=== PATIENT | female | born 1930 ===

== ENCOUNTER → 2018-06-11 | Outpatient (CLI) | payer MEDICARE ==
[2018-06-11 10:00] LABS: International Normalized Ratio 2.22; Prothrombin Time Results 21.9 Sec (9.7-11.5)
== END | disposition home or self-care (01) ==
LOC: LAB SHORT 09:15 → LAB EV 09:15
PROVIDERS: Physician Assistant Medical
DX: Z79.01 Long term (current) use of anticoagulants (principal); Z51.81 Encounter for therapeutic drug level monitoring
CPT/HCPCS: 85610

== ENCOUNTER 2020-01-15 20:01 | Inpatient (IN) | payer MEDICARE ==
[~2020-01-15] VITALS: Ht 172.7 cm; Wt 58.4 kg
[2020-01-15 21:13] LABS: Bun/Creatinine Ratio 19.6 (12.0-20.0); Calcium, Blood 9.3 mg/dL (8.5-10.1); Creatinine, Blood 1.48 mg/dL (0.40-1.00); Free Thyroxine 1.11 ng/dL (0.70-1.60); Magnesium, Blood 1.8 mg/dL (1.6-2.4); Potassium, Blood 5.8 mmol/L (3.5-5.5)
[2020-01-15] MEDS ORDERED: LOSARTAN POTAS100 M1 PO (21:34)
[2020-01-15] MEDS ORDERED: LEVSOD75 PO (21:34)
[2020-01-15] MEDS ORDERED: SPIR25 PO (21:35)
[2020-01-15] MEDS ORDERED: ATEN50 PO (21:35)
[2020-01-15] MEDS ORDERED: DYAZIDE 37.5-21 EACH PO (21:35)
[2020-01-15] MEDS ORDERED: ROPINIROLE HCL4 M1 PO (21:35)
[2020-01-15] MEDS ORDERED: TRAM50 PO (21:38)
[2020-01-15] MEDS ORDERED: Coumadin2 MG PO (21:38)
[2020-01-15] MEDS ORDERED: ACET500 PO (21:39)
[2020-01-15 23:46] LABS: International Normalized Ratio 1.83; Prothrombin Time Results 18.9 Sec (9.7-11.5)
[2020-01-16 05:07] LABS: BASOPHILS ABSOLUTE AUTO 0.03 K/mm3 (0.00-0.23); BASOPHILS PERCENT AUTO 1 % (0-2); EOSINOPHILS ABSOLUTE AUTO 0.07 K/mm3 (0.00-0.68); EOSINOPHILS PERCENT AUTO 1 % (0-6); Hematocrit 33.5 % (33.0-51.0); Hemoglobin 10.8 g/dL (11.5-16.0); IMMATURE GRAN ABSOLUTE AUTO 0.01 K/mm3 (0.00-0.10); IMMATURE GRAN PERCENT AUTO 0 % (0-1); LYMPHOCYTES ABSOLUTE AUTO 1.02 K/mm3 (0.84-5.20); LYMPHOCYTES PERCENT AUTO 21 % (21-46); MONOCYTES ABSOLUTE AUTO 0.73 K/mm3 (0.16-1.47); MONOCYTES PERCENT AUTO 15 % (4-13); Mean Corpuscular HGB 30.4 pg (26.0-34.0); Mean Corpuscular HGB Conc 32.2 g/dL (31.5-36.5); Mean Corpuscular Volume 94 fL (80-100); Mean Platelet Volume 9.6 fL (9.1-12.4); NEUTROPHILS ABSOLUTE AUTO 3.05 K/mm3 (1.96-9.15); NEUTROPHILS PERCENT AUTO 62 % (41-73); Platelet Count 126 K/mm3 (150-400); RDW Coefficient Variation 13.9 % (11.7-14.2); RDW Standard Deviation 48.7 fL (35.1-46.3); Red Blood Cell Count 3.55 M/mm3 (3.80-5.20); White Blood Cell Count 4.91 K/mm3 (4.00-11.30)
[2020-01-16 05:36] LABS: Albumin, Blood 2.9 g/dL (3.4-5.0); Anion Gap 5 mmol/L (6-16); Blood Urea Nitrogen 27 mg/dL (8-24); Bun/Creatinine Ratio 18.8 (12.0-20.0); CO2, Blood 19 mmol/L (21-32); Calcium, Blood 8.8 mg/dL (8.5-10.1); Chloride, Blood 108 mmol/L (98-108); Creatinine, Blood 1.44 mg/dL (0.40-1.00); Glomerular Filtration Rate 37 (60-); Glucose, Blood 86 mg/dL (70-99); Phosphorus, Blood 2.9 mg/dL (2.5-4.9); Sodium, Blood 132 mmol/L (136-145)
[2020-01-16 05:38] LABS: Potassium, Blood 6.1 mmol/L (3.5-5.5)
--- NOTE | 2020-01-16 06:41 | NUR ---
SHIFT SUMMARY PT WAS A NEW ADMIT DURING THE NIGHT, ARRIVING ON THE FLOOR AT 2358. PT WAS ADMITTED FOR EDMOND AND HYPERKALEMIA. PT IS A&O X 3, THOUGH FORGETFUL, SBA TO THE BS. PT DENIED ANY C/O ACUTE PAIN, NAUSEA OR SOB, BUT DID C/O RESTLESS LEGS. HOSPITALIST DR CAUSEY WAS NOTIFIED AT 0020, AND PT'S HOME DOSE OF DOSE OF ROPIR[place]LE ORDERED AND ADMINISTERED. PT IS RECEIVING NS @ 75 ML/HR. THIS AM, K+ WAS NOTED CRITICALLY HIGH AT 6.1. THE HOSPITALIST DR CAUSEY WAS NOTIFIED, AND A OT DOSE OF KAYEXALATE ORDERED AND ADMINISTERED. NO OTHER ACUTE CHANGES IN PT CONDITION NOTED. WILL CONTINUE TO MONITOR AND TREAT PER EMAR UNTIL HAND OFF TO DAY SHIFT RN.
[2020-01-16 11:33] LABS: Bun/Creatinine Ratio 18.2 (12.0-20.0); Calcium, Blood 8.6 mg/dL (8.5-10.1); Creatinine, Blood 1.37 mg/dL (0.40-1.00); Potassium, Blood 4.9 mmol/L (3.5-5.5)
[2020-01-16 11:43] LABS: International Normalized Ratio 2.02; Prothrombin Time Results 20.8 Sec (9.7-11.5)
--- NOTE | 2020-01-16 15:36 | NUR ---
SHE WAS GIVEN D50 AND INSULIN THIS MORNING FOR HER HYPERKALEMIA. HER RE-CHECK ON LUIS BMP SHOWED NORMAL POTASSIUM AND NEAR NORMAL SODIUM. IT ALSO SHOWED A CRITICALLY LOW GLUCOSE OF 47. SHE DRANK 1/2 CUP OF OJ. WHEN CBG CHECKED, SHE WAS ONLY UP TO 52. NOTIFIED OF ALL OF THIS. NEXT A 1/2 AMP OF D50 GIVEN AND SHE DRANK MOST OF AN APPLE JUICE AND ATE MOST OF A STRING CHEESE. THE NEXT CBG RESULT WAS 91. SHE HAS NO APPETITE AND NEEDED LOTS OF ENCOURAGEMENT TO TAKE ANYTHING PO. THE DIETITIAN CONSULTED WITH HER ABOUT HER RENAL DIET AND ABOUT LIKES AND DISLIKES. SHE C/O A LOT OF GAS. SIMETHICONE ORDER RECEIVED AND GIVEN. SHE FELT BETTER. HER MAIN COMPLAINT THOUGH IS BEING SO TIRED AND WANTING TO SLEEP. SHE HAS BEEN SLEEPING IN THE RECLINER CHAIR. HER DAUGHTER IS PRESENT FOR VISITORS HRS.
--- NOTE | 2020-01-16 19:00 | NUR ---
ASSUMED CARE RECEIVED REPORT FROM MIKE WARD. ASSUMED CARE OF PT. PT UP IN RECLINER, NO S/S/ ACUTE DISTRESS NOTED, RESPS E/U. DENIES NEEDS AT THIS TIME. CALL LIGHT, POSSESSIONS IN REACH, [facility].
--- NOTE | 2020-01-16 21:49 | NUR ---
SPOKE TO DIAMOND HERNANDEZ REGARDING PT'S LOW BP AND HOLDING OF BP MEDICATIONS. ORDERS RECEIVED. CONTINUE TO MONITOR.
[2020-01-17 00:17] LABS: Source, Urine Clean Catch
[2020-01-17 00:19] LABS: Bilirubin, Urine Neg (Neg); Blood, Urine Neg (Neg); Glucose Qualitative, Urine Neg (Neg); Ketones, Urine Neg (Neg); Leukocyte Esterase, Urine 2+ (Neg); Nitrite, Urine Neg (Neg); Protein, Urine Neg (Neg); Specific Gravity, Urine 1.015 (1.003-1.022); Urobilinogen, Urine NORM (Normal)
[2020-01-17 00:29] LABS: Appearance, Urine Clear (Clear); Color, Urine Yellow (P-Yellow)
[2020-01-17 00:35] LABS: Bacteria Mod /hpf; Red Blood Cells, Urine 0-2 /hpf (0-2); Squamous Epithelial Cells Few /hpf (Few)
[2020-01-17 04:50] LABS: BASOPHILS ABSOLUTE AUTO 0.02 K/mm3 (0.00-0.23); BASOPHILS PERCENT AUTO 0 % (0-2); EOSINOPHILS ABSOLUTE AUTO 0.08 K/mm3 (0.00-0.68); EOSINOPHILS PERCENT AUTO 1 % (0-6); Hemoglobin 10.7 g/dL (11.5-16.0); IMMATURE GRAN ABSOLUTE AUTO 0.02 K/mm3 (0.00-0.10); IMMATURE GRAN PERCENT AUTO 0 % (0-1); LYMPHOCYTES ABSOLUTE AUTO 0.69 K/mm3 (0.84-5.20); LYMPHOCYTES PERCENT AUTO 7 % (21-46); MONOCYTES ABSOLUTE AUTO 0.69 K/mm3 (0.16-1.47); MONOCYTES PERCENT AUTO 7 % (4-13); Mean Corpuscular HGB 30.1 pg (26.0-34.0); Mean Corpuscular HGB Conc 31.5 g/dL (31.5-36.5); Mean Corpuscular Volume 96 fL (80-100); Mean Platelet Volume 9.3 fL (9.1-12.4); NEUTROPHILS ABSOLUTE AUTO 8.11 K/mm3 (1.96-9.15); NEUTROPHILS PERCENT AUTO 84 % (41-73); Platelet Count 128 K/mm3 (150-400); RDW Standard Deviation 49.5 fL (35.1-46.3); Red Blood Cell Count 3.56 M/mm3 (3.80-5.20); White Blood Cell Count 9.61 K/mm3 (4.00-11.30)
[2020-01-17 05:04] LABS: International Normalized Ratio 2.41; Prothrombin Time Results 24.5 Sec (9.7-11.5)
[2020-01-17 05:05] LABS: Bun/Creatinine Ratio 18.1 (12.0-20.0); Calcium, Blood 8.2 mg/dL (8.5-10.1); Creatinine, Blood 1.27 mg/dL (0.40-1.00); Potassium, Blood 4.5 mmol/L (3.5-5.5)
--- NOTE | 2020-01-17 06:00 | NUR ---
SHIFT SUMMARY PT RESTING COMFORTABLY, NO S/S ACUTE DISTRESS NOTED. WAS MONITORED EVERY 1-2 HOURS WITH NEEDS MET. CBGS STABLE, RANGING 72-87, ENCOURAGED ORAL INTAKE. VS REVIEWED, WNL. BP'S STABLE. PT AMBULATED TO BATHROOM WITH FWW, TOLERATED WELL. SLEPT T/O NIGHT. PT DENIES PAIN OR NEEDS AT THIS TIME. CALL LIGHT, POSSESSIONS IN REACH, BED IN LOW POSITION WITH ALARMS ON. WCTM, REPORT OFF TO ONCOMING RN.
--- NOTE | 2020-01-17 09:38 | NUR ---
PER , ONE L. WO. THEN ORTHO. AFTER BOLUS NS AT 75 ML/HR
[2020-01-17] MEDS ORDERED: SIME80CH PO (16:04)
--- NOTE | 2020-01-17 16:23 | NUR ---
HOME HEALTH CERTIFICATE FAXED TO [facility] . WILL CALL THEM SUNDAY. PATIENT REQUEST WHOEVER CAN GET THERE THE SOONEST--NO PREFERENCE.
--- NOTE | 2020-01-17 17:31 | NUR ---
REVIEW D'C WITH DAUGHTER. AWARE HH WILL CALL ON SUNDAY. MEDS AT [facility]. REVIEW ALL MEDS. ANSWER ALL QUESTIONS. AWARE CAN RETURN IF ANY PROBLEMS. IN W/C WITH RN TO POV.
== END 2020-01-17 17:19 | disposition home health service (06) | DRG 683 ==
LOC: ER 20:01 → MEDS 20:02
PROVIDERS: Emergency Medicine; Family Medicine; Nurse Practitioner Acute Care; ADMIT Internal Medicine
DX: N17.9 Acute kidney failure, unspecified (principal); E87.1 Hypo-osmolality and hyponatremia; I48.20 Chronic atrial fibrillation, unspecified; E44.0 Moderate protein-calorie malnutrition; Z79.01 Long term (current) use of anticoagulants; I10 Essential (primary) hypertension; J45.909 Unspecified asthma, uncomplicated; Z90.12 Acquired absence of left breast and nipple; E87.5 Hyperkalemia; E86.0 Dehydration; E03.9 Hypothyroidism, unspecified; Z85.3 Personal history of malignant neoplasm of breast; Z87.891 Personal history of nicotine dependence; Z91.81 History of falling; G25.81 Restless legs syndrome; E86.1 Hypovolemia; T50.2X5A Adverse effect of carbonic-anhydrase inhibitors, benzothiadiazides and other diuretics, initial encounter; Y92.9 Unspecified place or not applicable
CPT/HCPCS: 36415; 71046; 76770; 80048; 80069; 81001; 82947; 83735; 84439; 85025; 85610; 87077; 87086; 87186; 93005; 93010; 96360; 96361; 97116; 97162; 97165; 97530; 99285-25; A9270; G0378; J1815; J7030; J7040

== ENCOUNTER 2022-06-29 01:41 | Emergency (ER) | payer MEDICARE, OTHER ==
[~2022-06-29] VITALS: Ht 162.6 cm; Wt 79.4 kg
[~2022-06-29 01:41] MED LIST: ACET500 PO; ATEN50 PO; Coumadin2 MG PO; DYAZIDE 37.5-21 EACH PO; LEVSOD75 PO; LOSARTAN POTAS100 M1 PO; ROPINIROLE HCL4 M1 PO; SIME80CH PO; SPIR25 PO; TRAM50 PO
[2022-06-29 03:03] LABS: BASOPHILS ABSOLUTE AUTO 0.02 K/mm3 (0.00-0.23); BASOPHILS PERCENT AUTO 0 % (0-2); EOSINOPHILS ABSOLUTE AUTO 0.04 K/mm3 (0.00-0.68); EOSINOPHILS PERCENT AUTO 1 % (0-6); Hematocrit 31.6 % (33.0-51.0); Hemoglobin 10.4 g/dL (11.5-16.0); IMMATURE GRAN ABSOLUTE AUTO 0.02 K/mm3 (0.00-0.10); IMMATURE GRAN PERCENT AUTO 0 % (0-1); LYMPHOCYTES ABSOLUTE AUTO 0.44 K/mm3 (0.84-5.20); LYMPHOCYTES PERCENT AUTO 9 % (21-46); MONOCYTES ABSOLUTE AUTO 0.86 K/mm3 (0.16-1.47); MONOCYTES PERCENT AUTO 18 % (4-13); Mean Corpuscular HGB 30.1 pg (26.0-34.0); Mean Corpuscular HGB Conc 32.9 g/dL (31.5-36.5); Mean Corpuscular Volume 91 fL (80-100); Mean Platelet Volume 8.9 fL (9.1-12.4); NEUTROPHILS ABSOLUTE AUTO 3.51 K/mm3 (1.96-9.15); NEUTROPHILS PERCENT AUTO 72 % (41-73); Platelet Count 146 K/mm3 (150-400); RDW Coefficient Variation 14.3 % (11.7-14.2); Red Blood Cell Count 3.46 M/mm3 (3.80-5.20); White Blood Cell Count 4.89 K/mm3 (4.00-11.30)
[2022-06-29 03:21] LABS: International Normalized Ratio 3.02; Prothrombin Time Results 29.8 Sec (9.7-11.5)
[2022-06-29 03:22] LABS: Bun/Creatinine Ratio 24.2 (12.0-20.0); Calcium, Blood 8.6 mg/dL (8.5-10.1); Creatinine, Blood 0.91 mg/dL (0.40-1.00); Potassium, Blood 4.2 mmol/L (3.5-5.5)
[2022-06-29] MEDS ORDERED: Percocet 5-3251 EACH PO (04:07)
[2022-06-29] MEDS ORDERED: DOC250 PO (04:07)
[2022-06-29 05:36] VITALS: BP 103/70
== END 2022-06-29 05:33 | disposition home or self-care (01) ==
LOC: ER 01:41
PROVIDERS: Emergency Medicine
DX: S70.12XA Contusion of left thigh, initial encounter (principal); D64.9 Anemia, unspecified; E87.1 Hypo-osmolality and hyponatremia; I10 Essential (primary) hypertension; I48.91 Unspecified atrial fibrillation; E03.9 Hypothyroidism, unspecified; Z86.711 Personal history of pulmonary embolism; Z85.3 Personal history of malignant neoplasm of breast; Z85.038 Personal history of other malignant neoplasm of large intestine; Z85.42 Personal history of malignant neoplasm of other parts of uterus; Z88.8 Allergy status to other drugs, medicaments and biological substances; Z79.01 Long term (current) use of anticoagulants; Z79.899 Other long term (current) drug therapy; W10.9XXA Fall (on) (from) unspecified stairs and steps, initial encounter
CPT/HCPCS: 73502; 73552; 80048; 85025; 85610; 85730; A9270

== ENCOUNTER 2022-07-03 11:58 | Emergency (ER) | payer MEDICARE, OTHER ==
[~2022-07-03] VITALS: Ht 162.6 cm; Wt 61.2 kg
[~2022-07-03 11:58] MED LIST changes: +DOC250 PO; +Percocet 5-3251 EACH PO
[2022-07-03 12:05] VITALS: BP 108/77
== END 2022-07-03 16:05 | disposition left against medical advice (07) ==
LOC: ER 11:58
DX: K59.00 Constipation, unspecified (principal); Z53.29 Procedure and treatment not carried out because of patient's decision for other reasons; Z79.01 Long term (current) use of anticoagulants; Z79.899 Other long term (current) drug therapy
CPT/HCPCS: 74018; 99282-25